=== PATIENT | female | born 1970 | race African-American/Black ===

== ENCOUNTER 2022-03-26 12:31 | Inpatient (IN) | payer BC ==
[2022-03-26] MEDS ORDERED: LOPERAMIDE HCL 2 MG CAPSULE PO PRN (13:33)
[2022-03-26] MEDS ORDERED: P-EPHED 60MG/TRIPROLIDI 2.5MG TABLET PO PRN (13:33)
[2022-03-26] MEDS ORDERED: MAGNESIUM HYDROX 2400MG/30ML ORAL SUSPENSION 30 ML CUP PO PRN (13:33)
[2022-03-26] MEDS ORDERED: MAG HYDROX/AL HYDROX/SIMETH 30 ML UNIT-DOSE CUP PO PRN (13:33)
[2022-03-26] MEDS ORDERED: MAGNESIUM CITRATE 300 ML BOTTLE PO PRN (13:33)
[2022-03-27] MEDS: MELATONIN 5 MG TABLETS PO SCH ×2 (01:17→21:09)
[2022-03-27] MEDS: THIAMINE HCL 100 MG TABLET (FP) PO SCH ×2 (01:17→21:09)
[2022-03-27] MEDS: hydrOXYzine PAMOATE 25 MG CAPSULE (FP) PO SCH ×8 (01:18→21:09)
[2022-03-27] MEDS: PRENATAL VITAMINS W/ FOLIC ACID TABLET (FP) PO SCH ×2 (01:18→10:41)
[2022-03-27] MEDS: NICOTINE 7 MG/24 HOURS TOPICAL PATCH TD SCH ×2 (01:18→10:41)
[2022-03-27] MEDS: ACETAMINOPHEN 325 MG TABLET (FP) PO PRN (10:41)
[2022-03-27 11:08] LABS: CALCIUM 8.8 mg/dL (8.5-10.1)
[2022-03-27 11:09] LABS: BLOOD UREA NITROGEN 13.3 mg/dL (7-18)
[2022-03-27 11:11] LABS: CREATININE 0.9 mg/dL (0.55-1.3)
[2022-03-27 11:12] LABS: HEMATOCRIT 35.6 % (32.4-45.2); HEMOGLOBIN 11.5 GM/dL (10.7-15.3); MCH 29.7 pg (25.7-33.7); MCHC 32.4 g/dl (32.0-36.0); MEAN CELL VOLUME 91.5 fl (80-96); MEAN PLT VOLUME 8.6 fl (7.5-11.1); PLATELET COUNT 231 10^3/uL (134-434); RBC 3.88 M/mm3 (3.60-5.2); RDW 13.3 % (11.6-15.6)
[2022-03-27 11:13] LABS: BILIRUBIN,TOTAL 0.3 mg/dL (0.2-1); TOT PROT 6.4 g/dl (6.4-8.2)
[2022-03-27 11:39] LABS: SYPHILIS W/ RPR CONF NON-REACTIVE (NONREACTIVE)
[2022-03-27] MEDS ORDERED: methaDONE HCL 10 MG TABLET PO ONE (12:53)
[2022-03-27 13:56] LABS: EPI CELLS 25 /uL (0-25.1); HYALINE CASTS 1 /uL (0-3.1); URINE APPEARANCE CLEAR; URINE BACTERIA 68 /uL (0-1359); URINE BILIRUBIN NEGATIVE (NEGATIVE); URINE COLOR YELLOW; URINE GLUCOSE (UA) NEGATIVE (NEGATIVE); URINE KETONE NEGATIVE (NEGATIVE); URINE LEUK ESTERASE NEGATIVE (NEGATIVE); URINE NITRITE NEGATIVE (NEGATIVE); URINE PROTEIN NEGATIVE (NEGATIVE); URINE RBC 11 /uL (0-23.9); URINE UROBILINOGEN 0.2 mg/dL (0.2-1.0); URINE WBC 16 /uL (0-25.8)
[2022-03-27] MEDS ORDERED: methaDONE HCL 10 MG TABLET ONE (14:32)
[2022-03-27] MEDS ORDERED: methaDONE HCL 40 MG DISPERSABLE TABLET ONE (14:32)
[2022-03-27] MEDS: IBUPROFEN 400 MG TABLET (FP) PO PRN (14:59)
[2022-03-28] MEDS ORDERED: methaDONE HCL 10 MG TABLET PO SCH (06:00)
[2022-03-28] MEDS ORDERED: methaDONE HCL 10 MG TABLET ONE (06:21)
[2022-03-28] MEDS ORDERED: methaDONE HCL 40 MG DISPERSABLE TABLET ONE (06:21)
[2022-03-28] MEDS: BENZOCAINE 20 % GEL TUBE MM PRN ×2 (06:52→21:22)
[2022-03-28] MEDS: hydrOXYzine PAMOATE 25 MG CAPSULE (FP) PO SCH ×3 (06:54→15:21)
[2022-03-28] MEDS ORDERED: cloNIDine HCL 0.1 MG TABLET PO ONE (07:26)
[2022-03-28] MEDS: NICOTINE 7 MG/24 HOURS TOPICAL PATCH TD SCH (10:35)
[2022-03-28] MEDS: PRENATAL VITAMINS W/ FOLIC ACID TABLET (FP) PO SCH (10:35)
[2022-03-28] MEDS: ACETAMINOPHEN 325 MG TABLET (FP) PO PRN (10:37)
[2022-03-28] MEDS ORDERED: cloNIDine HCL 0.1 MG TABLET PO PRN (10:50)
[2022-03-28] MEDS: CEPHALEXIN MONOHYDRATE 500 MG CAPSULE (UD) PO SCH ×3 (12:36→23:52)
[2022-03-28] MEDS: IBUPROFEN 400 MG TABLET (FP) PO PRN (21:21)
[2022-03-28] MEDS: THIAMINE HCL 100 MG TABLET (FP) PO SCH (21:22)
[2022-03-28] MEDS: MELATONIN 5 MG TABLETS PO SCH ×2 (22:01→22:11)
[2022-03-29] MEDS ORDERED: methaDONE HCL 10 MG TABLET ONE (03:36)
[2022-03-29] MEDS ORDERED: methaDONE HCL 40 MG DISPERSABLE TABLET ONE (03:36)
[2022-03-29] MEDS: CEPHALEXIN MONOHYDRATE 500 MG CAPSULE (UD) PO SCH ×4 (07:19→23:09)
[2022-03-29] MEDS: NICOTINE 7 MG/24 HOURS TOPICAL PATCH TD SCH (10:39)
[2022-03-29] MEDS: PRENATAL VITAMINS W/ FOLIC ACID TABLET (FP) PO SCH (10:39)
[2022-03-29] MEDS: NICOTINE 10 MG CARTRIDGE (INHALER) IH PRN (10:40)
[2022-03-29] MEDS: THIAMINE HCL 100 MG TABLET (FP) PO SCH (21:49)
[2022-03-29] MEDS: MELATONIN 5 MG TABLETS PO SCH (21:49)
[2022-03-29] MEDS: BENZOCAINE 20 % GEL TUBE MM PRN (21:52)
[2022-03-30] MEDS ORDERED: methaDONE HCL 40 MG DISPERSABLE TABLET ONE (03:40)
[2022-03-30] MEDS ORDERED: methaDONE HCL 10 MG TABLET ONE (03:40)
[2022-03-30] MEDS: CEPHALEXIN MONOHYDRATE 500 MG CAPSULE (UD) PO SCH ×4 (06:13→23:33)
[2022-03-30] MEDS: NICOTINE 7 MG/24 HOURS TOPICAL PATCH TD SCH (10:26)
[2022-03-30] MEDS: PRENATAL VITAMINS W/ FOLIC ACID TABLET (FP) PO SCH (10:26)
[2022-03-30] MEDS: NICOTINE 10 MG CARTRIDGE (INHALER) IH PRN (10:27)
[2022-03-30] MEDS: MELATONIN 5 MG TABLETS PO SCH (22:01)
[2022-03-30] MEDS: THIAMINE HCL 100 MG TABLET (FP) PO SCH (22:02)
[2022-03-31] MEDS ORDERED: methaDONE HCL 10 MG TABLET ONE (03:52)
[2022-03-31] MEDS ORDERED: methaDONE HCL 40 MG DISPERSABLE TABLET ONE (03:52)
[2022-03-31] MEDS: CEPHALEXIN MONOHYDRATE 500 MG CAPSULE (UD) PO SCH ×4 (06:39→23:07)
[2022-03-31] MEDS: NICOTINE 7 MG/24 HOURS TOPICAL PATCH TD SCH (10:47)
[2022-03-31] MEDS: PRENATAL VITAMINS W/ FOLIC ACID TABLET (FP) PO SCH (10:47)
[2022-03-31] MEDS: THIAMINE HCL 100 MG TABLET (FP) PO SCH (21:59)
[2022-03-31] MEDS: MELATONIN 5 MG TABLETS PO SCH (21:59)
[2022-04-01] MEDS ORDERED: methaDONE HCL 40 MG DISPERSABLE TABLET ONE (04:33)
[2022-04-01] MEDS ORDERED: methaDONE HCL 10 MG TABLET ONE (04:33)
[2022-04-01] MEDS: CEPHALEXIN MONOHYDRATE 500 MG CAPSULE (UD) PO SCH ×4 (06:25→23:27)
[2022-04-01] MEDS: NICOTINE 7 MG/24 HOURS TOPICAL PATCH TD SCH (11:09)
[2022-04-01] MEDS: PRENATAL VITAMINS W/ FOLIC ACID TABLET (FP) PO SCH (11:09)
[2022-04-01] MEDS: MELATONIN 5 MG TABLETS PO SCH (22:06)
[2022-04-01] MEDS: THIAMINE HCL 100 MG TABLET (FP) PO SCH (22:06)
[2022-04-02] MEDS ORDERED: methaDONE HCL 40 MG DISPERSABLE TABLET ONE (04:18)
[2022-04-02] MEDS ORDERED: methaDONE HCL 10 MG TABLET ONE (04:18)
[2022-04-02] MEDS: CEPHALEXIN MONOHYDRATE 500 MG CAPSULE (UD) PO SCH ×4 (06:32→23:05)
[2022-04-02] MEDS: NICOTINE 7 MG/24 HOURS TOPICAL PATCH TD SCH (10:26)
[2022-04-02] MEDS: PRENATAL VITAMINS W/ FOLIC ACID TABLET (FP) PO SCH (10:26)
[2022-04-02] MEDS: THIAMINE HCL 100 MG TABLET (FP) PO SCH (21:11)
[2022-04-02] MEDS: MELATONIN 5 MG TABLETS PO SCH (21:11)
[2022-04-03] MEDS ORDERED: methaDONE HCL 10 MG TABLET ONE (04:25)
[2022-04-03] MEDS ORDERED: methaDONE HCL 40 MG DISPERSABLE TABLET ONE (04:25)
[2022-04-03] MEDS: CEPHALEXIN MONOHYDRATE 500 MG CAPSULE (UD) PO SCH ×3 (06:37→17:41)
[2022-04-03] MEDS: PRENATAL VITAMINS W/ FOLIC ACID TABLET (FP) PO SCH (09:59)
[2022-04-03] MEDS: NICOTINE 7 MG/24 HOURS TOPICAL PATCH TD SCH (09:59)
[2022-04-03] MEDS: MELATONIN 5 MG TABLETS PO SCH (21:00)
[2022-04-03] MEDS: THIAMINE HCL 100 MG TABLET (FP) PO SCH (21:00)
[2022-04-04] MEDS: CEPHALEXIN MONOHYDRATE 500 MG CAPSULE (UD) PO SCH ×2 (00:11→05:56)
[2022-04-04] MEDS ORDERED: methaDONE HCL 40 MG DISPERSABLE TABLET ONE (05:51)
[2022-04-04] MEDS ORDERED: methaDONE HCL 10 MG TABLET ONE (05:51)
[2022-04-04] MEDS: NICOTINE 7 MG/24 HOURS TOPICAL PATCH TD SCH (09:39)
[2022-04-04] MEDS: PRENATAL VITAMINS W/ FOLIC ACID TABLET (FP) PO SCH (09:39)
[2022-04-04] MEDS: THIAMINE HCL 100 MG TABLET (FP) PO SCH (22:00)
[2022-04-04] MEDS: MELATONIN 5 MG TABLETS PO SCH (22:00)
[2022-04-05] MEDS ORDERED: methaDONE HCL 40 MG DISPERSABLE TABLET ONE (04:14)
[2022-04-05] MEDS ORDERED: methaDONE HCL 10 MG TABLET ONE (04:14)
[2022-04-05] MEDS: NICOTINE 10 MG CARTRIDGE (INHALER) IH PRN ×2 (06:45→21:57)
[2022-04-05] MEDS: NICOTINE 7 MG/24 HOURS TOPICAL PATCH TD SCH (11:02)
[2022-04-05] MEDS: PRENATAL VITAMINS W/ FOLIC ACID TABLET (FP) PO SCH (11:02)
[2022-04-05] MEDS: MELATONIN 5 MG TABLETS PO SCH (21:57)
[2022-04-05] MEDS: THIAMINE HCL 100 MG TABLET (FP) PO SCH (21:57)
[2022-04-06] MEDS ORDERED: methaDONE HCL 10 MG TABLET ONE (03:28)
[2022-04-06] MEDS ORDERED: methaDONE HCL 40 MG DISPERSABLE TABLET ONE (03:29)
[2022-04-06] MEDS: IBUPROFEN 400 MG TABLET (FP) PO PRN (07:28)
[2022-04-06] MEDS: PRENATAL VITAMINS W/ FOLIC ACID TABLET (FP) PO SCH (10:38)
[2022-04-06] MEDS: NICOTINE 7 MG/24 HOURS TOPICAL PATCH TD SCH (10:38)
[2022-04-06] MEDS: MELATONIN 5 MG TABLETS PO SCH (23:08)
[2022-04-06] MEDS: THIAMINE HCL 100 MG TABLET (FP) PO SCH (23:08)
[2022-04-07] MEDS ORDERED: methaDONE HCL 40 MG DISPERSABLE TABLET ONE (03:20)
[2022-04-07] MEDS ORDERED: methaDONE HCL 10 MG TABLET ONE (03:20)
[2022-04-07] MEDS: IBUPROFEN 400 MG TABLET (FP) PO PRN (09:43)
[2022-04-07] MEDS: NICOTINE 7 MG/24 HOURS TOPICAL PATCH TD SCH (09:44)
[2022-04-07] MEDS: PRENATAL VITAMINS W/ FOLIC ACID TABLET (FP) PO SCH (09:44)
[2022-04-07] MEDS: BENZOCAINE 20 % GEL TUBE MM PRN (09:47)
[2022-04-07] MEDS: guaiFENesin 200 MG/10 ML 10 ML UNIT-DOSE CUPS PO PRN ×2 (09:47→16:26)
[2022-04-07] MEDS: MELATONIN 5 MG TABLETS PO SCH (21:06)
[2022-04-07] MEDS: THIAMINE HCL 100 MG TABLET (FP) PO SCH (21:06)
[2022-04-07] MEDS: NICOTINE 10 MG CARTRIDGE (INHALER) IH PRN (21:11)
[2022-04-08] MEDS ORDERED: methaDONE HCL 40 MG DISPERSABLE TABLET ONE (03:56)
[2022-04-08] MEDS ORDERED: methaDONE HCL 10 MG TABLET ONE (03:56)
[2022-04-08] MEDS: IBUPROFEN 400 MG TABLET (FP) PO PRN (06:08)
[2022-04-08] MEDS: METHOCARBAMOL 500 MG TABLET PO PRN (06:09)
[2022-04-08] MEDS: NICOTINE 10 MG CARTRIDGE (INHALER) IH PRN ×2 (11:13→21:18)
[2022-04-08] MEDS: PRENATAL VITAMINS W/ FOLIC ACID TABLET (FP) PO SCH (11:13)
[2022-04-08] MEDS: NICOTINE 7 MG/24 HOURS TOPICAL PATCH TD SCH (11:14)
[2022-04-08] MEDS: THIAMINE HCL 100 MG TABLET (FP) PO SCH (21:15)
[2022-04-08] MEDS: SUVOREXANT 10 MG TABLET PO PRN (21:17)
[2022-04-09] MEDS ORDERED: methaDONE HCL 10 MG TABLET ONE (04:22)
[2022-04-09] MEDS ORDERED: methaDONE HCL 40 MG DISPERSABLE TABLET ONE (04:23)
[2022-04-09] MEDS: ACETAMINOPHEN 325 MG TABLET (FP) PO PRN (05:54)
[2022-04-09] MEDS: BENZOCAINE 20 % GEL TUBE MM PRN (05:57)
[2022-04-09] MEDS: NICOTINE 7 MG/24 HOURS TOPICAL PATCH TD SCH (10:55)
[2022-04-09] MEDS: PRENATAL VITAMINS W/ FOLIC ACID TABLET (FP) PO SCH (10:55)
[2022-04-09] MEDS: THIAMINE HCL 100 MG TABLET (FP) PO SCH (21:16)
[2022-04-09] MEDS: SUVOREXANT 10 MG TABLET PO PRN (21:16)
[2022-04-09] MEDS: guaiFENesin 200 MG/10 ML 10 ML UNIT-DOSE CUPS PO PRN (21:18)
[2022-04-10] MEDS ORDERED: methaDONE HCL 40 MG DISPERSABLE TABLET ONE (04:13)
[2022-04-10] MEDS ORDERED: methaDONE HCL 10 MG TABLET ONE (04:13)
[2022-04-10] MEDS: PRENATAL VITAMINS W/ FOLIC ACID TABLET (FP) PO SCH (11:06)
[2022-04-10] MEDS: NICOTINE 7 MG/24 HOURS TOPICAL PATCH TD SCH (11:07)
[2022-04-10] MEDS: METHOCARBAMOL 500 MG TABLET PO PRN (21:08)
[2022-04-10] MEDS: THIAMINE HCL 100 MG TABLET (FP) PO SCH (21:09)
[2022-04-10] MEDS: guaiFENesin 200 MG/10 ML 10 ML UNIT-DOSE CUPS PO PRN (21:09)
[2022-04-10] MEDS: SUVOREXANT 20 MG TABLET PO PRN (21:10)
[2022-04-11] MEDS ORDERED: methaDONE HCL 10 MG TABLET ONE (04:14)
[2022-04-11] MEDS ORDERED: methaDONE HCL 40 MG DISPERSABLE TABLET ONE (04:15)
[2022-04-11] MEDS: IBUPROFEN 400 MG TABLET (FP) PO PRN (06:38)
[2022-04-11] MEDS: PRENATAL VITAMINS W/ FOLIC ACID TABLET (FP) PO SCH (11:01)
[2022-04-11] MEDS: NICOTINE 7 MG/24 HOURS TOPICAL PATCH TD SCH (11:01)
[2022-04-11] MEDS: BENZOCAINE 20 % GEL TUBE MM PRN (11:03)
[2022-04-11] MEDS: NICOTINE 10 MG CARTRIDGE (INHALER) IH PRN ×2 (16:48→21:19)
[2022-04-11] MEDS: THIAMINE HCL 100 MG TABLET (FP) PO SCH (21:16)
[2022-04-11] MEDS: METHOCARBAMOL 500 MG TABLET PO PRN (21:17)
[2022-04-11] MEDS: SUVOREXANT 20 MG TABLET PO PRN (21:18)
[2022-04-12] MEDS ORDERED: methaDONE HCL 40 MG DISPERSABLE TABLET ONE (05:18)
[2022-04-12] MEDS ORDERED: methaDONE HCL 10 MG TABLET ONE (05:18)
[2022-04-12] MEDS: NICOTINE 10 MG CARTRIDGE (INHALER) IH PRN (11:27)
[2022-04-12] MEDS: PRENATAL VITAMINS W/ FOLIC ACID TABLET (FP) PO SCH (11:28)
[2022-04-12] MEDS: NICOTINE 7 MG/24 HOURS TOPICAL PATCH TD SCH (11:28)
[2022-04-12] MEDS: guaiFENesin 200 MG/10 ML 10 ML UNIT-DOSE CUPS PO PRN (11:29)
[2022-04-12] MEDS: THIAMINE HCL 100 MG TABLET (FP) PO SCH (22:42)
[2022-04-12] MEDS: SUVOREXANT 20 MG TABLET PO PRN (22:42)
[2022-04-13] MEDS: guaiFENesin 200 MG/10 ML 10 ML UNIT-DOSE CUPS PO PRN (00:25)
[2022-04-13] MEDS ORDERED: methaDONE HCL 40 MG DISPERSABLE TABLET ONE (05:25)
[2022-04-13] MEDS ORDERED: methaDONE HCL 10 MG TABLET ONE (05:25)
[2022-04-13] MEDS: IBUPROFEN 400 MG TABLET (FP) PO PRN (06:43)
[2022-04-13] MEDS: METHOCARBAMOL 500 MG TABLET PO PRN (06:43)
[2022-04-13] MEDS: PRENATAL VITAMINS W/ FOLIC ACID TABLET (FP) PO SCH (11:19)
[2022-04-13] MEDS: NICOTINE 7 MG/24 HOURS TOPICAL PATCH TD SCH (11:20)
[2022-04-13] MEDS: NICOTINE 10 MG CARTRIDGE (INHALER) IH PRN (11:22)
[2022-04-13] MEDS: ACETAMINOPHEN 325 MG TABLET (FP) PO PRN (22:12)
[2022-04-13] MEDS: THIAMINE HCL 100 MG TABLET (FP) PO SCH (22:12)
[2022-04-13] MEDS: SUVOREXANT 20 MG TABLET PO PRN (22:13)
[2022-04-14] MEDS ORDERED: methaDONE HCL 10 MG TABLET ONE (03:43)
[2022-04-14] MEDS ORDERED: methaDONE HCL 40 MG DISPERSABLE TABLET ONE (03:43)
[2022-04-14] MEDS: NICOTINE 7 MG/24 HOURS TOPICAL PATCH TD SCH (10:20)
[2022-04-14] MEDS: PRENATAL VITAMINS W/ FOLIC ACID TABLET (FP) PO SCH (10:21)
[2022-04-14] MEDS: NICOTINE 10 MG CARTRIDGE (INHALER) IH PRN ×2 (10:21→22:06)
[2022-04-14] MEDS: ACETAMINOPHEN 325 MG TABLET (FP) PO PRN (22:04)
[2022-04-14] MEDS: THIAMINE HCL 100 MG TABLET (FP) PO SCH (22:04)
[2022-04-14] MEDS: SUVOREXANT 20 MG TABLET PO PRN (22:06)
[2022-04-14] MEDS: METHOCARBAMOL 500 MG TABLET PO PRN (22:06)
[2022-04-15] MEDS ORDERED: methaDONE HCL 10 MG TABLET ONE (04:29)
[2022-04-15] MEDS ORDERED: methaDONE HCL 40 MG DISPERSABLE TABLET ONE (04:29)
[2022-04-15] MEDS: PRENATAL VITAMINS W/ FOLIC ACID TABLET (FP) PO SCH (10:50)
[2022-04-15] MEDS: NICOTINE 7 MG/24 HOURS TOPICAL PATCH TD SCH (10:50)
[2022-04-15] MEDS: IBUPROFEN 400 MG TABLET (FP) PO PRN ×2 (10:52→22:14)
[2022-04-15] MEDS: BENZOCAINE 20 % GEL TUBE MM PRN (10:54)
[2022-04-15] MEDS: METHOCARBAMOL 500 MG TABLET PO PRN (22:13)
[2022-04-15] MEDS: THIAMINE HCL 100 MG TABLET (FP) PO SCH (22:14)
[2022-04-15] MEDS: SUVOREXANT 20 MG TABLET PO PRN (22:14)
[2022-04-15] MEDS: NICOTINE 10 MG CARTRIDGE (INHALER) IH PRN (22:14)
[2022-04-16] MEDS ORDERED: methaDONE HCL 10 MG TABLET ONE (04:29)
[2022-04-16] MEDS ORDERED: methaDONE HCL 40 MG DISPERSABLE TABLET ONE (04:29)
[2022-04-16] MEDS: METHOCARBAMOL 500 MG TABLET PO PRN ×2 (06:11→21:10)
[2022-04-16] MEDS: NICOTINE 7 MG/24 HOURS TOPICAL PATCH TD SCH (10:32)
[2022-04-16] MEDS: PRENATAL VITAMINS W/ FOLIC ACID TABLET (FP) PO SCH (10:32)
[2022-04-16] MEDS: ACETAMINOPHEN 325 MG TABLET (FP) PO PRN ×2 (10:33→21:11)
[2022-04-16] MEDS: BENZOCAINE 20 % GEL TUBE MM PRN (10:34)
[2022-04-16] MEDS: THIAMINE HCL 100 MG TABLET (FP) PO SCH (21:10)
[2022-04-16] MEDS: SUVOREXANT 20 MG TABLET PO PRN (21:10)
[2022-04-16] MEDS: NICOTINE 10 MG CARTRIDGE (INHALER) IH PRN (21:13)
[2022-04-17] MEDS ORDERED: methaDONE HCL 10 MG TABLET ONE (05:23)
[2022-04-17] MEDS ORDERED: methaDONE HCL 40 MG DISPERSABLE TABLET ONE (05:24)
[2022-04-17] MEDS: METHOCARBAMOL 500 MG TABLET PO PRN (06:34)
[2022-04-17] MEDS: PRENATAL VITAMINS W/ FOLIC ACID TABLET (FP) PO SCH (10:49)
[2022-04-17] MEDS: NICOTINE 7 MG/24 HOURS TOPICAL PATCH TD SCH (10:49)
[2022-04-17] MEDS: ACETAMINOPHEN 325 MG TABLET (FP) PO PRN ×2 (10:50→21:10)
[2022-04-17] MEDS: NICOTINE 10 MG CARTRIDGE (INHALER) IH PRN ×2 (10:51→21:11)
[2022-04-17] MEDS: THIAMINE HCL 100 MG TABLET (FP) PO SCH (21:09)
[2022-04-17] MEDS: SUVOREXANT 20 MG TABLET PO PRN (21:10)
[2022-04-18] MEDS ORDERED: methaDONE HCL 40 MG DISPERSABLE TABLET ONE (04:34)
[2022-04-18] MEDS ORDERED: methaDONE HCL 10 MG TABLET ONE (04:34)
[2022-04-18] MEDS: METHOCARBAMOL 500 MG TABLET PO PRN ×2 (05:54→21:19)
[2022-04-18] MEDS: NICOTINE 7 MG/24 HOURS TOPICAL PATCH TD SCH (10:28)
[2022-04-18] MEDS: PRENATAL VITAMINS W/ FOLIC ACID TABLET (FP) PO SCH (10:28)
[2022-04-18] MEDS: THIAMINE HCL 100 MG TABLET (FP) PO SCH (21:19)
[2022-04-18] MEDS: SUVOREXANT 20 MG TABLET PO PRN (21:20)
[2022-04-18] MEDS: NICOTINE 10 MG CARTRIDGE (INHALER) IH PRN (21:20)
[2022-04-19] MEDS ORDERED: methaDONE HCL 10 MG TABLET ONE (04:33)
[2022-04-19] MEDS ORDERED: methaDONE HCL 40 MG DISPERSABLE TABLET ONE (04:33)
[2022-04-19] MEDS: METHOCARBAMOL 500 MG TABLET PO PRN ×2 (05:58→17:54)
[2022-04-19] MEDS: NICOTINE 7 MG/24 HOURS TOPICAL PATCH TD SCH (11:19)
[2022-04-19] MEDS: NICOTINE 10 MG CARTRIDGE (INHALER) IH PRN ×3 (11:19→22:28)
[2022-04-19] MEDS: PRENATAL VITAMINS W/ FOLIC ACID TABLET (FP) PO SCH (11:19)
[2022-04-19] MEDS: SUVOREXANT 20 MG TABLET PO PRN (21:16)
[2022-04-19] MEDS: THIAMINE HCL 100 MG TABLET (FP) PO SCH (21:16)
[2022-04-20] MEDS ORDERED: methaDONE HCL 40 MG DISPERSABLE TABLET ONE (04:19)
[2022-04-20] MEDS ORDERED: methaDONE HCL 10 MG TABLET ONE (04:19)
[2022-04-20] MEDS: METHOCARBAMOL 500 MG TABLET PO PRN ×2 (06:56→22:40)
[2022-04-20] MEDS: PRENATAL VITAMINS W/ FOLIC ACID TABLET (FP) PO SCH (10:59)
[2022-04-20] MEDS: NICOTINE 7 MG/24 HOURS TOPICAL PATCH TD SCH (10:59)
[2022-04-20] MEDS: NICOTINE 10 MG CARTRIDGE (INHALER) IH PRN ×2 (18:36→23:16)
[2022-04-20] MEDS: THIAMINE HCL 100 MG TABLET (FP) PO SCH (22:40)
[2022-04-20] MEDS: SUVOREXANT 20 MG TABLET PO PRN (22:41)
[2022-04-20] MEDS ORDERED: QUEtiapine FUMARATE 100 MG TABLET (FP) PO ONE (22:53)
[2022-04-21] MEDS ORDERED: methaDONE HCL 40 MG DISPERSABLE TABLET ONE (05:25)
[2022-04-21] MEDS ORDERED: methaDONE HCL 10 MG TABLET ONE (05:25)
[2022-04-21] MEDS: PRENATAL VITAMINS W/ FOLIC ACID TABLET (FP) PO SCH (10:46)
[2022-04-21] MEDS: NICOTINE 7 MG/24 HOURS TOPICAL PATCH TD SCH (10:47)
[2022-04-21] MEDS: METHOCARBAMOL 500 MG TABLET PO PRN ×2 (10:48→21:13)
[2022-04-21] MEDS: hydrOXYzine PAMOATE 25 MG CAPSULE (FP) PO PRN ×2 (16:01→21:13)
[2022-04-21] MEDS: SUVOREXANT 20 MG TABLET PO PRN (21:13)
[2022-04-21] MEDS: THIAMINE HCL 100 MG TABLET (FP) PO SCH (21:13)
[2022-04-21] MEDS: NICOTINE 10 MG CARTRIDGE (INHALER) IH PRN (21:14)
[2022-04-22] MEDS ORDERED: methaDONE HCL 10 MG TABLET ONE (03:20)
[2022-04-22] MEDS ORDERED: methaDONE HCL 40 MG DISPERSABLE TABLET ONE (03:20)
[2022-04-22] MEDS: METHOCARBAMOL 500 MG TABLET PO PRN ×2 (06:29→21:11)
[2022-04-22] MEDS: hydrOXYzine PAMOATE 25 MG CAPSULE (FP) PO PRN ×2 (06:30→17:07)
[2022-04-22] MEDS: PRENATAL VITAMINS W/ FOLIC ACID TABLET (FP) PO SCH (10:51)
[2022-04-22] MEDS: NICOTINE 7 MG/24 HOURS TOPICAL PATCH TD SCH (10:51)
[2022-04-22] MEDS: NICOTINE 10 MG CARTRIDGE (INHALER) IH PRN ×2 (17:10→21:12)
[2022-04-22] MEDS: SUVOREXANT 20 MG TABLET PO PRN (21:11)
[2022-04-22] MEDS: THIAMINE HCL 100 MG TABLET (FP) PO SCH (21:11)
[2022-04-23] MEDS ORDERED: methaDONE HCL 10 MG TABLET ONE (03:21)
[2022-04-23] MEDS ORDERED: methaDONE HCL 40 MG DISPERSABLE TABLET ONE (03:21)
[2022-04-23] MEDS: METHOCARBAMOL 500 MG TABLET PO PRN ×2 (06:43→09:57)
[2022-04-23 08:01] VITALS: PULSE 60
[2022-04-23 08:10] VITALS: BP 140/62; TEMP 98.2
[2022-04-23] MEDS: hydrOXYzine PAMOATE 25 MG CAPSULE (FP) PO PRN (09:57)
[2022-04-23] MEDS: NICOTINE 7 MG/24 HOURS TOPICAL PATCH TD SCH (09:57)
[2022-04-23] MEDS: PRENATAL VITAMINS W/ FOLIC ACID TABLET (FP) PO SCH (09:57)
[2022-04-23] MEDS: NICOTINE 10 MG CARTRIDGE (INHALER) IH PRN (10:00)
== END 2022-04-23 13:25 | disposition home or self-care (01) | DRG 772 ==
LOC: YASAS 12:31 → Y5N 23:33
PROVIDERS: ADMIT Allergy & Immunology; ATTEND Psychiatry & Neurology Pain Medicine
PROC: HZ42ZZZ Group Counseling for Substance Abuse Treatment, Cognitive-Behavioral (ICD-10-PCS; principal; 2022-03-26)
DX: F10.20 Alcohol dependence, uncomplicated (principal); F11.20 Opioid dependence, uncomplicated; F14.20 Cocaine dependence, uncomplicated; F12.20 Cannabis dependence, uncomplicated; F17.210 Nicotine dependence, cigarettes, uncomplicated; F19.282 Other psychoactive substance dependence with psychoactive substance-induced sleep disorder; S01.512A Laceration without foreign body of oral cavity, initial encounter; Y04.2XXA Assault by strike against or bumped into by another person, initial encounter; Y92.238 Other place in hospital as the place of occurrence of the external cause; W45.8XXA Other foreign body or object entering through skin, initial encounter; Y93.9 Activity, unspecified; Y92.239 Unspecified place in hospital as the place of occurrence of the external cause; Z56.0 Unemployment, unspecified; Z59.00 Homelessness unspecified
CPT/HCPCS: 36415; 80053; 81003; 81025; 82962; 85027; 86769; 86780; 86803; 93005; 93010; C9803-CS; J0735; U0003; U0005